=== PATIENT | female | born 1995 | race Caucasian/White ===

== ENCOUNTER 2019-04-14 13:42 | Emergency (ER) | payer SELFPAY ==
[2019-04-14 14:04] VITALS: TEMP 98
[2019-04-14] MEDS ORDERED: ACETAMINOPHEN 1000 MG/100 ML VIAL (NON FORMULARY) IVPB ONE (14:30)
[2019-04-14] MEDS ORDERED: SODIUM CHLORIDE 1,000 ML IV STA (14:30)
[2019-04-14] MEDS ORDERED: FAMOTIDINE 20 MG/50 ML IVPB 20 MG/50 ML MG IVPB ONE ×2 (14:30→15:06)
[2019-04-14] MEDS ORDERED: ONDANSETRON 4 MG/2 ML VIAL IVPUSH ONE (14:30)
[2019-04-14] MEDS ORDERED: ACETAMINOPHEN INJECTION 100 ML IVPB ONE (14:36)
[2019-04-14] MEDS ORDERED: ONDANSETRON 4 MG/2 ML VIAL ONE (14:36)
[2019-04-14 14:52] LABS: BASO % 0.3 % (0-2.0); HEMATOCRIT 39.3 % (32.4-45.2); HEMOGLOBIN 12.3 GM/dL (10.7-15.3); LYMPH % 5.9 % (8-40); MCH 22.5 pg (25.7-33.7); MCHC 31.4 g/dl (32.0-36.0); MEAN CELL VOLUME 71.7 fl (80-96); MEAN PLT VOLUME 9.1 fl (7.5-11.1); MONO % 1.3 % (3.8-10.2); NEUT % 92.5 % (42.8-82.8); PLATELET COUNT 259 K/MM3 (134-434); RBC 5.48 M/mm3 (3.60-5.2); RDW 13.5 % (11.6-15.6); WHITE BLOOD COUNT 13.3 K/mm3 (4.0-10.0)
--- NOTE | 2019-04-14 14:54 | PDOC ---
History of Present Illness - General Chief Complaint: Pain, Acute Stated Complaint: ABD PAIN / VOMITING Time Seen by Provider: 04/14/19 14:25 History Source: Patient Exam Limitations: No Limitations - History of Present Illness Initial Comments: 04/14/19 15:20 Patient is a 23F with history of kidney stones, appendectomy, and ectopic s/p fallopian removal here today complaining of vomiting and abdominal pain that started this morning when she woke up. She endorses 5 episodes of vomiting, no blood or bile. Endorses subjective fevers and chills. Pain is located in the RLQ. Denies vaginal pain, vaginal discharge. LMP 1 week ago. Endorses history of ovarian cysts. Denies dysuria and frequency. Endorses associated diarrhea. Denies sick contacts. Past History - Past Medical History Allergies/Adverse Reactions: Allergies Allergy/AdvReac Type Severity Reaction Status Date / Time No Known Allergies Allergy Verified 04/14/19 13:50 COPD: No Other medical history: KIDNEY STONES, LEFT ECTOPIC REMOVAL/FALLOPIAN TUBE - Surgical History Appendectomy: Yes - Suicide/Smoking/Psychosocial Hx Smoking History: Never smoked Drug/Substance Use Hx: Yes (MARIJUANA) Review of Systems - Review of Systems Able to Perform ROS?: Yes Comments:: 04/14/19 15:24 GENERAL/CONSTITUTIONAL: +fever +chills. No weakness. HEAD, EYES, EARS, NOSE AND THROAT: No change in vision.No sore throat. CARDIOVASCULAR: No chest pain or shortness of breath RESPIRATORY: No cough, wheezing, or hemoptysis. GASTROINTESTINAL: +nausea, +vomiting, +diarrhea no constipation. GENITOURINARY: No dysuria, frequency, or change in urination. MUSCULOSKELETAL: No joint or muscle swelling or pain. No neck or back pain. SKIN: No rash NEUROLOGIC: No headache, vertigo, loss of consciousness, or change in strength/ sensation. HEMATOLOGIC/LYMPHATIC: No anemia, easy bleeding, or history of blood clots. ALLERGIC/IMMUNOLOGIC: No hives or skin allergy. *Physical Exam - Vital Signs Last Vital Signs Temp Pulse Resp BP Pulse Ox 98.0 F 87 20 147/88 99 04/14/19 13:50 04/14/19 13:50 04/14/19 13:50 04/14/19 13:50 04/14/19 13:50 - Physical Exam Comments: 04/14/19 15:24 GENERAL: Awake, alert, and fully oriented, crying HEAD: No signs of trauma, normocephalic, atraumatic EYES: PERRLA, EOMI, sclera anicteric, conjunctiva clear ENT: Auricles normal inspection, hearing grossly normal, nares patent, oropharynx clear without exudates. Moist mucosa NECK: Normal ROM, supple, no lymphadenopathy, JVD, or masses LUNGS: No distress, speaks full sentences, clear to auscultation bilaterally HEART: Regular rate and rhythm, normal S1 and S2, no murmurs, rubs or gallops, peripheral pulses normal and equal bilaterally. ABDOMEN: Soft, +RLQ tenderness, normoactive bowel sounds. No guarding, no rebound. EXTREMITIES: Normal inspection, Normal range of motion, no edema. No clubbing or cyanosis. NEUROLOGICAL: Cranial nerves II through XII grossly intact. Normal speech, no focal sensorimotor deficits SKIN: Warm, Dry, normal turgor, no rashes or lesions noted. ED Treatment Course - LABORATORY CBC & Chemistry Diagram: 04/14/19 14:45 04/14/19 14:30 - ADDITIONAL ORDERS Additional order review: 04/14/19 14:45 RBC 5.48 H MCV 71.7 L MCHC 31.4 L RDW 13.5 MPV 9.1 Neutrophils % 92.5 H Lymphocytes % 5.9 L Monocytes % 1.3 L Eosinophils % 0.0 Basophils % 0.3 - RADIOLOGY Radiology Studies Ordered: Category Date Time Status TRANSVAGINAL ULTRASOUND US [US] Stat Ultrasound 04/14/19 14:32 Ordered - Medications Given in the ED: ED Medications Discontinued Medications Generic Name Dose Route Start Last Admin Trade Name Travon PRN Reason Stop Dose Admin Acetaminophen 1,000 mg 04/14/19 14:30 04/14/19 14:50 Ofirmev Injection - IVPB 04/14/19 14:31 1,000 mg ONCE ONE Administration Ondansetron HCl 4 mg 04/14/19 14:30 04/14/19 14:52 Zofran Injection IVPUSH 04/14/19 14:31 4 mg ONCE ONE Administration Medical Decision Making - Medical Decision Making 04/14/19 15:28 Patient is 23F with history of appendectomy, L tubal ectopic, and kidney stones here today with RLQ abdominal pain and vomiting. DDx includes, but is not limited to: ovarian cyst, torsion, uti, nephrolithiasis, gastroenteritis. Abdominal labs ordered, will treat with fluids, zofran, tylenol, pepcid. 04/14/19 16:03 CBC shows leukocytosis with neutrophilic shift but no bands CMP reassuring. Preg neg. Lipase neg. UA clear. Patient tolerating PO, pain has improved. Will discharge home with return precautions. *DC/Admit/Observation/Transfer Diagnosis at time of Disposition: Vomiting, Abdominal pain - Discharge Dispostion Disposition: HOME Condition at time of disposition: Good Decision to Admit order: No - Referrals Referrals: ON STAFF,NOT [Primary Care Provider] - - Patient Instructions Printed Discharge Instructions: DI for Abdominal Pain-Adult, DI for Vomiting - - Adult Additional Instructions: Please return to the ED if you have any new, worsening or concerning symptoms, especially increasing pain, fever and vomiting. Please follow up with your primary care doctor this week. - Post Discharge Activity
--- NOTE | 2019-04-14 15:01 | PDOC ---
Documentation entered by Rosa Maria Mohamud SCRIBE, acting as scribe for Cecille Salinas MD. Cecille Salinas MD: This documentation has been prepared by the Cade ross Daisy, SCRIBE, under my direction and personally reviewed by me in its entirety. I confirm that the documentation accurately reflects all work, treatment, procedures, and medical decision making performed by me. Attending Attestation - Resident Resident Name: Scott Juárez - ED Attending Attestation I have performed the following: I have examined & evaluated the patient, The case was reviewed & discussed with the resident, I agree w/resident's findings & plan, Exceptions are as noted - HPI HPI: 04/14/19 14:30 The patient is a 23YOF with a PMH of appendectomy and left sided partial salpingectomy (due to ectopic ) who presents to the ER for evaluation of vomiting since this morning. Patient reports having 5-6 episodes of nonbloody , nonbilious vomit with associated diarrhea, subjective fever and chills. Denies any sick contact or recent travel. Denies urinary symptoms, vaginal pain or discharge. Allergies: NKDA Surgical Hx: appendectomy and left sided partial salpingectomy 04/14/19 14:59 - Physicial Exam PE: GENERAL: Awake, alert, and fully oriented, in no acute distress HEAD: No signs of trauma EYES: PERRLA, EOMI, sclera anicteric, conjunctiva clear ENT: Auricles normal inspection, hearing grossly normal, nares patent, oropharynx clear without exudates. Moist mucosa NECK: Normal ROM, supple, no lymphadenopathy, JVD, or masses LUNGS: Breath sounds equal, clear to auscultation bilaterally. No wheezes, and no crackles HEART: Regular rate and rhythm, normal S1 and S2, no murmurs, rubs or gallops ABDOMEN: Soft, +mild RLQ tenderness, normoactive bowel sounds. No guarding, no rebound. No masses EXTREMITIES: Normal range of motion, no edema. No clubbing or cyanosis. No cords, erythema, or tenderness NEUROLOGICAL: Cranial nerves II through XII grossly intact. Normal speech, normal gait. Motor and sensation intact SKIN: Warm, Dry, normal turgor, no rashes or lesions noted. - Medical Decision Making Pt with abrupt onset RLQ pain, woke her from sleep with pain and vomiting. Will obtain UCG. If negative, ultrasound to r/o torsion/ovarian cyst.
[2019-04-14 15:32] LABS: ALBUMIN 3.9 g/dl (3.4-5.0); BILIRUBIN,TOTAL 0.4 mg/dL (0.2-1); CREATININE 0.7 mg/dL (0.55-1.3); POTASSIUM 4.6 mmol/L (3.5-5.1); TOT PROT 8.1 g/dl (6.4-8.2)
[2019-04-14 15:35] LABS: ANISOCYTOSIS 0; MACROCYTOSIS 0; PLATELET ESTIMATE NORMAL
[2019-04-14 15:59] LABS: EPI CELLS 14.2 /HPF (0-5/HPF); PH,URINE >= 9.0 (5.0-8.0); URINE APPEARANCE CLOUDY; URINE BILIRUBIN NEGATIVE (NEGATIVE); URINE CASTS 27 /lpf (0-8); URINE COLOR YELLOW; URINE GLUCOSE (UA) NEGATIVE (NEGATIVE); URINE KETONE TRACE (NEGATIVE); URINE LEUK ESTERASE NEGATIVE (NEGATIVE); URINE NITRITE NEGATIVE (NEGATIVE); URINE PROTEIN 1+ (NEGATIVE); URINE RBC 3 /hpf (0-4); URINE WBC 8 /hpf (0-5)
[2019-04-14 16:23] VITALS: BP 132/68; PULSE 81
== END 2019-04-14 16:22 | disposition home or self-care (01) ==
LOC: JER 13:42
PROC: 3E0337Z Introduction of Electrolytic and Water Balance Substance into Peripheral Vein, Percutaneous Approach (ICD-10-PCS; principal; 2019-04-14)
PROC: 3E033GC Introduction of Other Therapeutic Substance into Peripheral Vein, Percutaneous Approach (ICD-10-PCS; 2019-04-14)
PROC: 3E033GC Introduction of Other Therapeutic Substance into Peripheral Vein, Percutaneous Approach (ICD-10-PCS; 2019-04-14)
PROC: 3E033NZ Introduction of Analgesics, Hypnotics, Sedatives into Peripheral Vein, Percutaneous Approach (ICD-10-PCS; 2019-04-14)
DX: R10.9 Unspecified abdominal pain (principal); R11.10 Vomiting, unspecified
CPT/HCPCS: 36415; 76830-TC; 80053; 81003; 83690; 84703; 85025; 87086; 99282-25; J0131; J7030